=== PATIENT | female | born 1990 | race Caucasian/White ===

== ENCOUNTER 2023-04-21 12:24 | Emergency (ER) | payer OTHER, SELFPAY ==
[2023-04-21 12:38] VITALS: BP 118/78; PULSE 82; RESP 16; TEMP 36.8; O2SAT 100
--- NOTE | 2023-04-21 12:42 | ED.EAR ---
HPI - Ear Problem General Chief complaint: Ear Stated complaint: ear inf Source: patient and RN notes reviewed History of Present Illness HPI Narrative: 32-year-old female presents to the [facility] complaining upper respiratory symptoms. patient states that her symptoms started on when she noticed a sore throat, congestion, cough, and left ear pain. Patient has stated since then her left ear pain has gotten worse and she feels like something is rattling in her lungs. Patient denies any chest pain or shortness of breath. Patient has a history of open heart surgery as an infant and a heart murmur. Patient was just recently treated with antibiotics for sinus infection about 2 weeks ago. Related Data Home Medications Medication Instructions Recorded Confirmed multivitamin (Daily Multi-Vitamin 1 tablet PO DAILY 04/21/23 04/21/23 tablet) Allergies Allergy/AdvReac Type Severity Reaction Status Date / Time No Known Allergies Allergy Verified 04/21/23 12:36 Review of Systems Review of Systems: CONSTITUTIONAL: Denies fever, chills, or sweats. EYES: Denies visual changes, redness, or discharge. ENT: Reports left ear otalgia, congestion, and sore throat CARDIOVASCULAR: Denies chest pain, palpitations, or edema. RESPIRATORY: Reports cough. Denies dyspnea GASTROINTESTINAL: Denies abdominal pain, nausea, vomiting, or diarrhea. GENITOURINARY: Denies dysuria or hematuria. SKIN: Denies rash or itching. MUSCULOSKELETAL: Denies back pain, joint pain, or myalgia. NEUROLOGIC: Denies headache, numbness, or weakness. Pertinent positives per HPI. [facility] Past Medical History Medical History Anxiety BMI 28.0-28.9,adult BMI 29.0-29.9,adult BMI 31.0-31.9,adult BMI 36.0-36.9,adult BMI 38.0-38.9,adult Cardiac disease Encounter for wellness examination Migraine Restless leg syndrome Surgical History Surgical History History of orthopedic surgery Family History Family History Father Family history of COPD (chronic obstructive pulmonary disease) Family history of diabetes mellitus in first degree relative Mother Family history of diabetes mellitus in first degree relative Sibling No problems noted. 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 There is no relevant family history pertinent to the patient complaint. Exam Narrative: GENERAL: This is a well-nourished, well-developed patient, in no apparent distress. HEAD: normocephalic, atraumatic. EYES: Sclera clear/white. Vision is grossly intact. EARS: External ears normal, auditory canals clear and without drainage, right TM pearly mehta without perforation. Left TM with mild erythema and tenderness, and is bulging without perforation. Hearing grossly intact NOSE: External nose normal with no obvious nasal discharge, nares without redness, no rhinorrhea. THROAT: Mucous membranes moist, posterior pharynx with mild erythema. NECK: Neck suppl
== END 2023-04-21 13:05 | disposition home or self-care (01) ==
PROVIDERS: Emergency Provider Nurse Practitioner Family; PCP Family Medicine
DX: H66.92 Otitis media, unspecified, left ear (principal); G25.81 Restless legs syndrome
CPT/HCPCS: 99213; G0463

== ENCOUNTER 2023-06-30 09:54 | Emergency (ER) | payer OTHER, SELFPAY ==
--- NOTE | ~2023-06-30 | US_ITS ---
EXAMINATION: US pelvic complete DATE: 06/30/2023 14:22 INDICATION: Ovarian torsion TECHNIQUE: Multiple transabdominal sonographic images of the pelvis were obtained. COMPARISON: None. FINDINGS: The uterus measures 8.5 x 3.8 x 5.3 cm. The endometrial complex measures 4-5 mm in thickness. The ri ght ovary measures 5.0 x 3.0 x 4.5 cm. The left ovary measures 4.6 x 1.4 x 2.8 cm. Vascular flow is i dentified in both ovaries on color Doppler. There is subtle curvilinear hypoechoic rim to a 3.6 cm ce ntrally hypoechoic complex cystic lesion in the right ovary which is without internal vascular flow o n color Doppler. On the cine images there appears to be a layering fluid hematocrit level suggestive of a hemorrhagic cyst. There appears to be a collapsed peripherally enhancing corpus luteum cyst at t he left ovary on the prior CT which is unable be clearly distinguished on the ultrasound images. Ther e is no free fluid in the pelvis. IMPRESSION: 1. Vascular flow identified in both ovaries on color Doppler. 2. Subtle 3.6 cm complex cystic lesion without internal vascular flow within the right ovary, statist ically most likely to represent a hemorrhagic cyst but would recommend follow-up ultrasound in 6-12 w eeks. Reviewed, dictated and finalized at [facility]. IMPRESSION: 1. Vascular flow identified in both ovaries on color Doppler. 2. Subtle 3.6 cm complex cystic lesion without internal vascular flow within th e right ovary, statistically most likely to represent a hemorrhagic cyst but wo uld recommend follow-up ultrasound in 6-12 weeks.
--- NOTE | ~2023-06-30 | CT_ITS ---
EXAMINATION: CT abdomen pelvis w con DATE: 06/30/2023 11:32 INDICATION: Right-sided abdominal pain, vomiting. TECHNIQUE: Computed tomography (CT) of the abdomen and pelvis was performed with 100 CC Omnipaque 350 intravenous contrast. Automated exposure control and iterative reconstruction technique were employe d. Exam dose: 497.63 mGy-cm total exam DLP. COMPARISON: None. FINDINGS: The lung bases are clear of infiltrate or consolidation. Normal heart size. No pericardial or pleural effusion. Small sliding hiatal hernia. The liver, gallbladder, bile ducts, pancreas, pancreatic duct and spleen are unremarkable. Normal morphology of the adrenal glands. No renal mass lesion or urinary tract calculus or hydroureteronephrosis is detected. There is a 4 cm rounded thick walled complicated fluid collection in the right adnexal area. Differen tial diagnosis includes pelvic inflammatory disease/pelvic abscess, endometrioma, right ovarian cysti c neoplasm, less likely ruptured ectopic gestation or diverticular abscess. Peripherally enhancing approximately 1.5 cm left ovarian involuting cyst. Normal caliber of the abdominal aorta. No intraperitoneal or retroperitoneal or pelvic mass lesion or adenopathy or ascites is noted otherwise. No bowel obstruction or intraperitoneal free air. Small fat-containing umbilical hernia. No suspicious osteolytic or osteoblastic lesions. IMPRESSION: 4 cm thick walled abnormal fluid collection in the right adnexal area; differential diag nosis includes pelvic inflammatory disease, pelvic abscess, cystic right ovarian neoplasm, endometrio ma, less likely ruptured ectopic gestation or diverticular abscess Reviewed, dictated and finalized at [facility]. Reviewed, dictated and finalized at [facility]. IMPRESSION: 4 cm thick walled abnormal fluid collection in the right adnexal a deangelo; differential diagnosis includes pelvic inflammatory disease, pelvic absces s, cystic right ovarian neoplasm, endometrioma, less likely ruptured ectopic ge station or diverticular abscess
[2023-06-30 10:08] VITALS: BP 117/49; PULSE 92; RESP 18; TEMP 36.4; O2SAT 100
--- NOTE | 2023-06-30 10:33 | ED.ABDPAIN ---
HPI - Abdominal Pain General Chief Complaint: Abdominal Pain Stated Complaint: abd cramping Time Seen by Provider: 06/30/23 10:33 Source: patient Mode of arrival: ambulatory Limitations: no limitations History of Present Illness HPI narrative: 32 years old white female drove herself to the emergency room because of cramps all over the abdomen started yesterday, last night, this morning patient woke up with severe pain lower abdomen bilaterally mainly on the right side associated with diaphoresis, nausea and vomiting and shaking all over. Patient denied any history of abdominal surgery, she does have history of depression, and ovarian cyst rupture. She denies smoking or drinking or using drugs. Patient reported that she is virgin never had vaginal intercourse. She denies any fever, chills, diarrhea, constipation or urinary symptoms Related Data Home Medications Medication Instructions Recorded Confirmed multivitamin (Daily Multi-Vitamin 1 tablet PO DAILY 04/21/23 04/29/23 tablet) Allergies Allergy/AdvReac Type Severity Reaction Status Date / Time No Known Allergies Allergy Verified 06/30/23 10:26 Review of Systems Review of Systems: All systems reviewed & are unremarkable except as noted in HPI and below PMFSH Past Medical History Medical History Anxiety BMI 28.0-28.9,adult BMI 29.0-29.9,adult BMI 31.0-31.9,adult BMI 32.0-32.9,adult BMI 36.0-36.9,adult BMI 38.0-38.9,adult Cardiac disease Encounter for wellness examination Migraine Restless leg syndrome Surgical History Surgical History History of orthopedic surgery Family History Family History Father Family history of COPD (chronic obstructive pulmonary disease) Family history of diabetes mellitus in first degree relative Mother Family history of diabetes mellitus in first degree relative Sibling No problems noted. 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 Musculoskeletal: Normal range of motion, nontender back Neurologic: Alert and oriented ?3, TRAVEL OCCUPATIONAL THERAPIST is normal as tested, no gross motor deficit Course Consultations Consultation #1: Dr. Kruger, outpatient follow-up Date: 06/30/23 Time: 15:43 Vital Signs Vital sig
[2023-06-30 10:39] LABS: Basophils Percent Auto 0.2 % (0.2-1.2); Hematocrit 43.2 % (37.0-47.0); Hemoglobin 14.2 g/dL (12.0-15.0); Immature Granulocyte Absolute 0.06 K/mm3 (0.00-0.031); Immature Granulocyte Percent A 0.4 % (0-0.5); Lymphocytes Absolute Auto 0.71 K/mm3 (0.9-3.2); Lymphocytes Percent Auto 4.6 % (18.3-44.2); Mean Corpuscular HGB Conc 32.9 g/dl (32-36); Mean Corpuscular Hemoglobin 28.4 pg (26-34); Mean Corpuscular Volume 86.4 fl (80-100); Mean Platelet Volume 11.2 fl (7.4-10.4); Monocytes Absolute Auto 0.8 K/mm3 (0.1-0.6); Neutrophils Absolute Auto 13.7 K/mm3 (1.3-6.7); Neutrophils Percent Auto 89.8 % (45.5-73.1); Platelet Count Result 211 k/mm3 (150-375); Red Cell Distribution Width 14.7 % (11.5-14.5); White Blood Count 15.3 K/mm3 (4.5-10.0)
[2023-06-30 10:41] LABS: Appearance Urine Clear (Clear); Bilirubin Urine Negative (Negative); Blood Urine Negative (Negative); Color Urine Yellow (Yellow); Glucose Urine UA Negative (Negative); Ketones Urine Trace mg/dL (Negative); Leukocyte Esterase Ur Negative LEU/UL (Negative); Nitrate Urine Negative (Negative); Protein Urine Negative (Negative); Specific Grav Ur 1.018 (1.001-1.035); Urobilinogen Urine 0.2 mg/dL (<2.0)
[2023-06-30 10:48] LABS: Alanine Aminotransferase 24 U/L (6-35); Albumin Level 4.7 g/dL (3.5-5.1); Alkaline Phosphatase 56 U/L (38-126); Anion Gap 10 mmol/L (8-16); Aspartate Amino Transferase 31 U/L (14-36); Bilirubin,Total 0.8 mg/dL (0.2-1.3); Blood Urea Nitrogen 11 mg/dL (7-17); Calcium 9.4 mg/dL (8.4-10.2); Carbon Dioxide 26 mmol/L (22-30); Chloride 103 mmol/L (98-107); Estimated Glomerular Filt Rate > 60; Glucose 99 mg/dL (65-110); Lipase 124 U/L (23-300); Potassium 3.8 mmol/L (3.4-5.0); Sodium 139 mmol/L (137-145)
[2023-06-30] MEDS: ONDANSETRON INJ 4 MG/2 ML VIAL IV PUSH (10:52)
[2023-06-30] MEDS: SODIUM CHLORIDE 0.9% IV 1,000 ML 999 ML IV CONT (10:52)
[2023-06-30] MEDS: HYDROmorphone HCL INJ (*CRX) 1 MG/ML SYR 0.5 MG IV PUSH (10:52)
[2023-06-30 10:53] VITALS: BP 103/58; PULSE 78; RESP 15; O2SAT 98
[2023-06-30 10:57] LABS: Add Urine Microscopic? NO
--- NOTE | 2023-06-30 11:23 | PC.NURSE ---
Pt to CT scan via stretcher at this time.
[2023-06-30 12:11] VITALS: PULSE 66; RESP 15; O2SAT 100
[2023-06-30 13:40] VITALS: BP 112/69; PULSE 70; RESP 15; O2SAT 100
[2023-06-30] MEDS: PIPERACILLN/TAZ 3.375GM/NS50ML 3.375 GM/50 ML BAG IVPB (13:40)
[2023-06-30 16:07] VITALS: BP 116/63; PULSE 80; RESP 19; O2SAT 100
== END 2023-06-30 16:08 | disposition home or self-care (01) ==
PROVIDERS: Emergency Provider Emergency Medicine; PCP Family Medicine
DX: N83.201 Unspecified ovarian cyst, right side (principal)
CPT/HCPCS: 36415; 74177; 76856; 80053; 81003; 81025; 83690; 85025; 96361; 96365; 96375; 99284; J1170; J2405; J2543; J7030; Q9967

== ENCOUNTER 2023-09-23 10:39 | Outpatient (CLI) | payer OTHER, SELFPAY ==
--- NOTE | ~2023-09-23 | US_ITS ---
EXAMINATION: US pelvic complete DATE: 09/23/2023 11:45 INDICATION: Right ovarian cyst. TECHNIQUE: Multiple transabdominal sonographic images of the pelvis were obtained. COMPARISON: Ultrasound pelvis 06/30/2023, CT abdomen and pelvis 06/30/2023 FINDINGS: The uterus measures 7.1 x 3.5 x 5.7 cm. There is no free fluid in the pelvis. The endometrial complex measures 3 mm in thickness. The right ovary measures 4.8 x 3.6 x 3.9 cm. In the right ovary, there i s a 4.1 cm cystic mass with peripheral irregular margin and nodularity without internal vascular flow . The left ovary measures 3.3 x 1.3 x 1.3 cm. There is normal vascular flow in the ovaries. IMPRESSION: 1. 4.1 cm cystic mass with peripheral irregular margin and peripheral nodularity without internal vas cular flow. This finding may be a hemorrhagic cyst or neoplasm. Consider pelvis MRI without and with contrast or surgical evaluation. Reviewed, dictated and finalized at location [facility]. 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 4.1 cm cystic mass with peripheral irregular margin and peripheral nodularit y without internal vascular flow. This finding may be a hemorrhagic cyst or krishna plasm. Consider pelvis MRI without and with contrast or surgical evaluation.
== END 2023-09-23 10:40 | disposition home or self-care (01) ==
PROVIDERS: PCP Family Medicine; Visit Provider Obstetrics & Gynecology Gynecology
DX: N83.201 Unspecified ovarian cyst, right side (principal)
CPT/HCPCS: 76856

== ENCOUNTER 2023-10-20 13:19 | Outpatient (CLI) | payer OTHER, SELFPAY ==
--- NOTE | ~2023-10-20 | MR_ITS ---
MRI of the pelvis Clinical history 1) cystic mass TECHNIQUE: Coronal T2 weighted and T2 fat-sat images, axial T1-weighted in and out of phase images, T 2-weighted images, and STIR images were performed. Following intravenous administration of 12 cc Mult iHance gadolinium, T1-weighted fat-sat imaging was performed in the axial and coronal planes. Correlation made with prior CT scan dated 06/30/2023, and prior ultrasound dated 09/23/2023. FINDINGS: Uterus is anteverted. No myometrial mass seen. No junctional zone thickening. Endometrial c avity/rectum is unremarkable. Left ovary unremarkable. No left adnexal mass seen. There is a 4.2 cm right ovarian cystic mass, hyperintense on both T1-weighted and T2-weighted images, there are T1 hyperintensities more pronounced and T2 hyperintensity. No definite appreciable postcon trast enhancement identified. There is loss of signal on STIR images, however the hyperintense signal is preserved on T1-weighted fat-sat precontrast images.. No ascites. Urinary bladder unremarkable. Visualized bowel loops are unremarkable. Osseous structures are intact. IMPRESSION: 4.2 cm right ovarian lesion is most consistent with endometrioma. Reviewed, dictated and finalized at [facility]. 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
== END 2023-10-20 13:20 | disposition home or self-care (01) ==
PROVIDERS: PCP Family Medicine; Visit Provider Obstetrics & Gynecology Gynecology
DX: R10.2 Pelvic and perineal pain (principal); N83.201 Unspecified ovarian cyst, right side
CPT/HCPCS: 72197; A9577

== ENCOUNTER 2024-11-29 12:31 | Emergency (ER) | payer OTHER, SELFPAY ==
--- NOTE | 2024-11-29 12:32 | ED.URI ---
HPI - URI/Sore Throat General Chief Complaint: Upper Respiratory Infection Stated Complaint: Sinus Infection Symptoms Time Seen by Provider: 11/29/24 12:31 Source: patient Mode of arrival: ambulatory Limitations: no limitations History of Present Illness HPI Narrative: Wen is a 34-year-old female patient presenting to the clinic today with complaints of possible sinus infection. Reports she has had sinus pressure drainage, ear pain, sore throat, and cough since the end of October. She reports she had COVID in October. Denies any chest pain or shortness of breath. No known fevers. MD elicited complaint: cough, sore throat, nasal congestion and sinus pain Related Data Home Medications ?Medication ?Instructions ?Recorded ?Confirmed ?Last Taken ?Type multivitamin (Daily Multi-Vitamin 1 tablet PO DAILY 04/21/23 06/26/24 Unknown History tablet) Allergies Allergy/AdvReac Type Severity Reaction Status Date / Time No Known Allergies Allergy Verified 11/29/24 12:34 Review of Systems Review of Systems: Pertinent positives per HPI. Patient denies any fever, chills, rash, visual changes, dizziness, shortness of breath, chest pain, palpitations, nausea, vomiting, diarrhea, constipation, abdominal pain, or any urinary issues. [facility] Past Medical History Medical History Anxiety BMI 28.0-28.9,adult BMI 29.0-29.9,adult BMI 31.0-31.9,adult BMI 32.0-32.9,adult BMI 36.0-36.9,adult BMI 38.0-38.9,adult Cardiac disease Encounter for wellness examination Migraine Restless leg syndrome Surgical History Surgical History History of orthopedic surgery Family History Family History Father Family history of COPD (chronic obstructive pulmonary disease) Family history of diabetes mellitus in first degree relative Mother Family history of diabetes mellitus in first degree relative Sibling No problems noted. 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 There is no relevant family history pertinent to the patient complaint. Exam Narrative: General: Well-developed, well nourished, in no apparent distress Head: Normocephalic, atraumatic Eyes: Pupils equally round and reactive to light bilaterally, EOM intact, sclera and conjunctive clear, no discharge, lids normal Ears: TMs intact and clear, ear canals clear, no drainage, grossly hearing normal. Nose: Nares patent, green nasal discharge, moderate inflammation, maxillary and frontal sinus tenderness. Mouth: Oral pharynx red without lesions or masses, good dentition, MMM. Postnasal drip Neck: Supple, trachea midline, no enlargement of anterior or posterior cervical nodes, no thyroid masses or goiter palpable. Cardio: Regular rate and rhythm, s1 and s2 normal, no murmur appreciated. Resp: Clear to auscultation bilaterally, no rhonchi, rales, wheezing or rubs Course Course Emergency Course: Portions of this record may have been created with voice recognition software. Level of Care: Express Care Visit Vital Signs Vital signs: Vital Signs Temperature 36.6 C 11/29/24 12:41 Pulse Rate 70 11/29/24 12:41 Respiratory Rate 11/29/24 12:41 Blood Pressure 122/71 11/29/24 12:41 Pulse Oximetry 100 11/29/24 12:41 Temperature 36.6 C 11/29/24 12:41 Pulse Rate 70 11/29/24 12:41 Respiratory Rate 16 11/29/24 12:41 Blood Pressure 122/71 11/29/24 12:41 Pulse Oximetry 100 11/29/24 12:41 Vital signs reviewed MDM - URI/Sore Throat MDM Narrative Medical decision making narrative: At the time of visit patient is resting comfortably on the exam table. Patient appears to be nontoxic. Plan: I suspect patient has acute bacterial rhinosinusitis. Prescription for Augmentin and prednisolone was sent to the pharmacy. Supportive measures were discussed with the patient and they voiced understanding discharge instructions and agrees to treatment plan. Return precautions reviewed Differential Diagnosis Differential diagnosis: Likely upper respiratory infection, otitis media, sinusitis, viral infection, bronchitis, influenza, pharyngitis and other (COVID) Discharge Plan Discharge Clinical Impression: Acute bacterial sinusitis Patient Disposition: Home, Self-Care Condition: Stable Instructions: Antibiotic Form, Rhinosinusitis (ED) Additional Instructions: Take prescription medications only as prescribed-prednisolone and Augmentin Increase fluids and stay well hydrated Tylenol/motrin for pain/fever Flonase and OTC antihistamines as directed Vicks vapor rub to open sinuses Sinus rinses for congestion Cepacol spray, cough drops, throat lozenges, warm tea with honey/lemon, gargle salt water to soothe throat BRAT diet for diarrhea Clear liquids x 24 hours then advance as tolerated for nausea/vomiting Go to the ED if you develop a worsening in your condition- high fever not controlled by Tylenol or Motrin, dehydration, weakness, lethargy, shortness of breath, or chest pain. Follow up with your PCP in 3-5 days if symptoms persist. Patient Language: Canadian Prescriptions: New amoxicillin-pot clavulanate 600-42.9 mg/5 mL suspension for reconstitution 7.3 ml PO Q12H 10 Days Qty: 146 0RF prednisolone 15 mg/5 mL solution 42 mg PO QAM 5 Days Qty: 70 0RF No Action multivitamin [Daily Multi-Vitamin] Tablet 1 tablet PO DAILY escitalopram oxalate [Lexapro] 10 mg tablet 15 mg PO DAILY Qty: 135 2RF Follow-up/Referrals: Steve Diop MD [Primary Care Provider] - Time of Disposition: 12:47 Quality NIHSS Nursing Documentation ED NIHSS nursing documentation: reviewed/agree
[2024-11-29 12:41] VITALS: BP 122/71; PULSE 70; RESP 16; TEMP 36.6; O2SAT 100
== END 2024-11-29 12:49 | disposition home or self-care (01) ==
PROVIDERS: Emergency Provider Nurse Practitioner Family; PCP Family Medicine
DX: J01.90 Acute sinusitis, unspecified (principal); G25.81 Restless legs syndrome; F41.9 Anxiety disorder, unspecified
CPT/HCPCS: 99213; G0463